=== PATIENT | male | born 1975 | race African-American/Black ===

== ENCOUNTER 2019-06-19 11:59 | Emergency (ER) | payer SELFPAY ==
[~2019-06-19] VITALS: Ht 172.7 cm; Wt 64.0 kg
[~2019-06-19 11:59] MED LIST: AMOX1TAB61 PO; HYOS0.1222 PO; LEVO750T5 PO; META-21 PO; METR-34 PO; NAPR-683 PO; OXYB5TAB10 PO; OXYC1TAB15 PO
[2019-06-19] MEDS ORDERED: IV NORMAL SALINE 1000ML BAG 1,000 ML IV SCH (12:52)
[2019-06-19] MEDS ORDERED: ONDANSETRON PF 4 MG/2 ML VIAL. IVP ONE ×2 (13:00→14:45)
[2019-06-19 13:23] LABS: BILIRUBIN,URINE NEGATIVE (NEG); CLARITY,URINE CLOUDY; COLOR,URINE YELLOW; NITRITE,URINE NEGATIVE (NEG); PH,URINE 8.5 (<5.0-8.0); PROTEIN,URINE 100 mg/dL (NEG-TRACE)
[2019-06-19 13:29] LABS: BASO % 0 % (0-3); EOS % 0 % (0-3); HEMATOCRIT 49.1 % (39.0-53.0); HEMOGLOBIN 16.5 g/dL (13.0-17.5); LYMPH # 0.6 x10^3/uL (1.0-4.8); LYMPH % 9 % (24-48); MEAN CORPUSCULAR HEMOGLOBIN 32 pg (25-35); MEAN CORPUSCULAR HGB CONC 34 g/dL (31-37); MEAN CORPUSCULAR VOLUME 94 fL (79-100); MONO # 0.2 x10^3/uL (0.0-1.1); MONO % 3 % (0-9); NEUT # 5.2 x10^3/uL (1.8-7.7); NEUT % 87 % (31-73); PLATELET COUNT 252 x10^3/uL (140-400); RED BLOOD COUNT 5.22 x10^6/uL (4.30-5.70); RED CELL DISTRIBUTION WIDTH 13.3 % (11.5-14.5)
[2019-06-19] MEDS ORDERED: PANTOPRAZOLE IV PUSH 40 MG VIAL. IVP ONE (13:30)
[2019-06-19 13:31] LABS: BARBITURATES NEG (NEG); BENZODIAZEPINES NEG (NEG); CANNABINOIDS POS (NEG); COCAINE NEG (NEG); METHADONE NEG (NEG); OPIATES NEG (NEG); PHENCYCLIDINE NEG (NEG)
[2019-06-19 13:33] LABS: AMORPHOUS SEDIMENT,UR PRESENT /HPF
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
[2019-06-19 13:34] LABS: AMPHETAMINE/METHAMPHETAMINE NEG (NEG); BACTERIA,URINE FEW /HPF (0-FEW); RBC,URINE OCC /HPF (0-2); WBC,URINE OCC /HPF (0-4)
[2019-06-19 13:37] LABS: PROTHROMBIN TIME PATIENT 12.8 SEC (11.7-14.0)
[2019-06-19] MEDS ORDERED: IOHEXOL 300 MG/ML 100ML VIAL. IV ONE (13:45)
[2019-06-19 13:50] LABS: CALCIUM 9.2 mg/dL (8.5-10.1); CREATININE 1.1 mg/dL (0.7-1.3); GFR 89.3; POTASSIUM 3.3 mmol/L (3.5-5.1)
[2019-06-19 14:06] LABS: ALBUMIN 4.4 g/dL (3.4-5.0); ALBUMIN/GLOBULIN RATIO 1.2 (1.0-1.7); TOTAL BILIRUBIN 0.6 mg/dL (0.2-1.0); TOTAL PROTEIN 8.2 g/dL (6.4-8.2)
[2019-06-19 14:17] LABS: FECAL OB PT NEGATIVE (NEG)
--- NOTE | 2019-06-19 14:23 | RAD ---
CT ABD PELV W/ IV CONTRST ONLY History: Vomiting, black stool, blood in vomit Comparison: None. Technique: After administration of intravenous contrast, helical CT of the abdomen and pelvis was performed from the lung bases through the ischial tuberosities. Coronal and sagittal reconstructions were obtained. 75 mL of Omnipaque 300 were used. One or more of the following dose reduction techniques were utilized: Automated exposure control (AEC), Adjustment of mA and/or kV according to patient size, Use of iterative reconstruction technique such as ASiR, CT scan done according to ALARA and image gently/image wisely Abdomen Findings: The visualized lung bases are clear. The liver, gallbladder, pancreas, spleen, and bilateral adrenal glands are normal. Symmetric renal enhancement. There is no focal renal mass. There is no hydronephrosis. Small hiatal hernia. The visualized loops of small bowel are normal. Large bowel anastomoses near the splenic flexure and sigmoid region. The visualized loops of large bowel are otherwise normal. There is no evidence of bowel obstruction. Appendix is normal. There is no free fluid. There is no mesenteric or retroperitoneal adenopathy. The abdominal aorta is normal in caliber. Mild aortic atherosclerotic disease. Pelvis Findings: Urinary bladder is normal. No pelvic free fluid. There is no pelvic or inguinal adenopathy. There is no acute bony abnormality. IMPRESSION: No acute findings. Electronically signed by: Karson Dougherty MD (06/19/2019 2:20 PM) [id number]
[2019-06-19] MEDS ORDERED: ONDA4TAB12 PO (14:35)
--- NOTE | 2019-06-19 14:35 | EKG ---
[facility] [address] [place] [address] Test Date: 2019-06-19 Test Time: 14:14:08 Pat Name: YU BROWN Department: Room: Gender: M [employer]: : 1975 Requested By: FRANDY TAVAREZ Order Number: [id number] Reading MD: Cortez Hardy MD Measurements Intervals [place] Rate: 65 P: 36 CT: 162 QRS: 34 QRSD: 88 T: 10 QT: 428 QTc: 446 Interpretive Statements SINUS RHYTHM Electronically Signed On 06-21-2019 11:30:14 CDT by Cortez Hardy MD
[2019-06-19] MEDS ORDERED: POTASSIUM CHLORIDE 20 MEQ TABLET.ER. PO ONE (14:45)
[2019-06-19] MEDS ORDERED: IV NORMAL SALINE 1000ML BAG 1,000 ML IV ONE (14:45)
[2019-06-19] MEDS ORDERED: PROMETHAZINE 25 MG SUPP.RECT. PR ONE (16:30)
[2019-06-19 16:51] VITALS: BP 144/72
== END 2019-06-19 17:16 | disposition home or self-care (01) ==
LOC: ER 11:59
DX: R11.2 Nausea with vomiting, unspecified (principal); R06.6 Hiccough; R19.7 Diarrhea, unspecified; F17.200 Nicotine dependence, unspecified, uncomplicated; Z90.89 Acquired absence of other organs; Z98.890 Other specified postprocedural states; Z88.8 Allergy status to other drugs, medicaments and biological substances
CPT/HCPCS: 36415; 74177; 80053; 80307; 81001; 82274; 83690; 84484; 85025; 85610; 93005; 96361; 96374; 96375; 96376; 99285; C9113; G0480; J2405; J7030; Q9967

== ENCOUNTER 2020-09-28 19:42 | Emergency (ER) | payer SELFPAY ==
[~2020-09-28] VITALS: Ht 175.3 cm; Wt 70.0 kg
[~2020-09-28 19:42] MED LIST changes: +ONDA4TAB12 PO
[2020-09-28 20:58] LABS: BASO # 0.1 x10^3/uL (0.0-0.2); BASO % 1 % (0-3); EOS % 0 % (0-3); HEMATOCRIT 48.3 % (39.0-53.0); HEMOGLOBIN 16.6 g/dL (13.0-17.5); LYMPH # 1.1 x10^3/uL (1.0-4.8); LYMPH % 13 % (24-48); MEAN CORPUSCULAR HEMOGLOBIN 32 pg (25-35); MEAN CORPUSCULAR HGB CONC 34 g/dL (31-37); MEAN CORPUSCULAR VOLUME 94 fL (79-100); MONO # 0.4 x10^3/uL (0.0-1.1); MONO % 5 % (0-9); NEUT # 7.3 x10^3/uL (1.8-7.7); NEUT % 82 % (31-73); PLATELET COUNT 244 x10^3/uL (140-400); RED BLOOD COUNT 5.13 x10^6/uL (4.30-5.70); RED CELL DISTRIBUTION WIDTH 12.8 % (11.5-14.5); WHITE BLOOD COUNT 8.9 x10^3/uL (4.0-11.0)
[2020-09-28] MEDS ORDERED: ONDANSETRON ODT 4 MG TAB.RAPDIS. PO ONE (21:00)
[2020-09-28 21:06] LABS: CALCIUM 9.6 mg/dL (8.5-10.1); CREATININE 1.2 mg/dL (0.7-1.3); GFR 80.3; POTASSIUM 3.5 mmol/L (3.5-5.1)
[2020-09-28 21:10] LABS: ALBUMIN 4.2 g/dL (3.4-5.0); ALBUMIN/GLOBULIN RATIO 1.2 (1.0-1.7); TOTAL BILIRUBIN 0.6 mg/dL (0.2-1.0); TOTAL PROTEIN 7.8 g/dL (6.4-8.2)
[2020-09-28] MEDS ORDERED: ONDANSETRON PF 4 MG/2 ML VIAL. ONE (21:33)
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
[2020-09-28] MEDS ORDERED: ONDANSETRON PF 4 MG/2 ML VIAL. IVP ONE (22:00)
[2020-09-28] MEDS ORDERED: IV NORMAL SALINE 1000ML BAG 1,000 ML IV ONE ×3 (22:00→23:30)
--- NOTE | 2020-09-28 22:05 | RAD ---
Exam: Acute abdominal series INDICATION: Abdominal pain, constipation TECHNIQUE: Frontal view of the chest with upright and supine views of the abdomen Comparisons: None FINDINGS: The cardiomediastinal silhouette and pulmonary vessels are within normal limits. The lung and pleural spaces are clear. Air and stool are noted throughout the colon to level the rectum in a nonobstructive bowel gas patter n. No suspicious masses or calcifications. Visualized osseous structures are unremarkable. IMPRESSION: 1. No acute cardiopulmonary process. 2. Nonobstructive bowel gas pattern. Electronically signed by: Divine Kirkland MD (09/28/2020 10:03 PM) [facility]
[2020-09-28] MEDS ORDERED: CONTRAST GIVEN. MC PRN (22:45)
[2020-09-28] MEDS ORDERED: IOHEXOL 300 MG/ML 100ML VIAL. IV ONE (23:00)
--- NOTE | 2020-09-28 23:16 | RAD ---
CT abdomen and pelvis without contrast PQRS statement: CT scans at this facility use dose reduction including either automated exposure cont rol, iterative reconstructions, and /or weight based radiation dosing via mA and kV modification when appropriate to reduce radiation dose to as low as reasonably achievable. HISTORY: Abdominal pain, nausea and vomiting. Abdomen findings: Lung bases and bones are unremarkable. Liver, gallbladder, pancreas, spleen, adrena l glands and kidneys are unremarkable. No urinary calculi or hydronephrosis. The appendix is negative . Rectosigmoid resection with colorectal anastomosis. Partial left transverse colic resection with co lic anastomosis. No obstruction or inflammation GI tract. Left lower quadrant image 60 there is a 4 m m linear calcification at the region of the left iliac arteries as well as the gonadal vessels and le ft ureter likely vascular calcification, is difficult to exclude ureteral calculus at this location a s the ureter cannot be differentiated from the surrounding small vessels. Aortoiliac artery calcified plaque. No abdominal fluid. Mild lumbar scoliosis. Pelvis findings: No bladder calculi. Bladder, prostate, rectum and bones are unremarkable. No pelvic fluid. IMPRESSION: 1. No acute process. Appendix negative. 2. 4 mm linear calcification at the left lower quadrant at the region of the left iliac vessels and g onadal vessels, most likely vascular calcification from arterial atherosclerotic plaque or a venous p hlebolith. The left lower ureter is difficult to visualize in this anatomic region and a distal urete ral calculus is a secondary consideration however there is no dilation or edema of the ureter or othe r findings to otherwise suggest that this is a urinary calculus. Electronically signed by: Loyd Lakhani MD (09/28/2020 11:13 PM) [facility]
[2020-09-28] MEDS ORDERED: ONDA4TAB7 PO (23:28)
[2020-09-28] MEDS ORDERED: FAMO40TA57 PO (23:39)
[2020-09-28] MEDS ORDERED: diphenhydrAMINE ORAL ELIXIR 12.5 MG/5 ML ML PO PRN (23:45)
[2020-09-28] MEDS ORDERED: ACETAMINOPHEN 325 MG TABLET. PO PRN (23:45)
[2020-09-29 00:23] VITALS: BP 130/71
[2020-09-29] MEDS ORDERED: PROCHLORPERAZINE 10 MG/2 ML VIAL. IV ONE (00:30)
[2020-09-29] MEDS ORDERED: FAMOTIDINE 20 MG/2 ML VIAL IVP ONE (00:30)
== END 2020-09-29 00:44 | disposition home or self-care (01) ==
LOC: ER 19:42
DX: R10.32 Left lower quadrant pain (principal); R11.2 Nausea with vomiting, unspecified; F17.200 Nicotine dependence, unspecified, uncomplicated; Z90.49 Acquired absence of other specified parts of digestive tract; Z88.8 Allergy status to other drugs, medicaments and biological substances
CPT/HCPCS: 36415; 74022; 74176; 80053; 85025; 96361; 96374; 96375; 99285; J0780; J2405; J3490; J7030; 86920